=== PATIENT | male | born 1985 | race Native Hawaiian/Other Pacific Islander ===

== ENCOUNTER 2021-11-08 23:32 | Emergency (ER) | payer OTHER ==
[~2021-11-08] VITALS: Ht 185.4 cm; Wt 97.5 kg
[2021-11-08 23:32] VITALS: BP 179/87; TEMP 98.7
== END 2021-11-08 23:38 | disposition left against medical advice (07) ==
LOC: ED 23:32
DX: Z53.21 Procedure and treatment not carried out due to patient leaving prior to being seen by health care provider (principal)